=== PATIENT | male | born 1945 | race Caucasian/White ===

== ENCOUNTER 2016-08-08 05:46 | Inpatient (IN) | payer BC ==
[2016-08-05 16:48] LABS: ALKALINE PHOSPHATASE 127 U/L (45-117); CALCIUM, SERUM 8.3 MG/DL (8.5-10.4); CHLORIDE, SERUM 102 MMOL/L (96-112); CO2 (CARBON DIOXIDE) 29 MMOL/L (24-34); CREATININE 1.58 MG/DL (0.70-1.30); GFR AFRICAN AMERICAN 50 ML/MIN (>=60); GFR NON AFRICAN AMERICAN 43 ML/MIN (>=60); GLUCOSE, SERUM 92 MG/DL (60-99); IRON, SERUM 36 MCG/DL (35-150); POTASSIUM, SERUM 4.2 MMOL/L (3.5-5.3); SGOT(AST) 28 U/L (5-40); SGPT(ALT) 26 U/L (5-65); SODIUM, SERUM 140 MMOL/L (135-148); TOTAL BILIRUBIN 0.5 MG/DL (0-1.2); TOTAL PROTEIN 6.4 G/DL (6.0-8.5)
[2016-08-05 16:53] LABS: A/G RATIO 0.7 (0.7-1.9); ALBUMIN 2.7 G/DL (3.5-5.0); BUN (BLOOD UREA NITROGEN) 35 MG/DL (6-23); GLOBULIN 3.7 G/DL (2.5-4.1)
--- NOTE | ~2016-08-08 | DS ---
Discharge Summary [facility] [address] [place]. [address] NAME: DAVIDSON BA : 41 STATUS : ADM IN [facility]#: [id number] AGE: 71 ADM/REG DATE : 08/08/16 MR#: [id number] REPORT SERV DATE: 08/22/16 DICTATED BY: NITO OTT DATE: 08/22/16 REPORT STATUS : Draft TRANSCRIBED BY: MODL DATE: 08/22/16 ADMISSION DATE: 08/08/2016 DISCHARGE DATE: 08/22/2016 SUMMARY DATE OF : 08/22/2016 at 1642. REASON FOR ADMISSION: Acute hypoxic respiratory failure, jgyrb-ze-icakons congestive heart failure exacerbation. HISTORY OF PRESENT ILLNESS: Please refer to Dr. Allen Lamb's history and physical dated 08/08/2016 for complete details regarding the patient's admission. In brief, the patient was admitted to the Hospitalist Service for management and evaluation of his acute-on- chronic systolic heart failure exacerbation and vsspo-mz-kndexiy hypoxic respiratory failure and pneumonia. HOSPITAL COURSE: From admission on 08/17/2016, please refer to Mr. Pancho Barrios's interim summary. In brief, during that time, Mr. Barrios took care of the patient. He was diagnosed with a community-acquired pneumonia along with anevd-tk-hxyfrgi systolic heart failure exacerbation, acute hypoxic respiratory failure along with acute kidney injury that was being managed by the Hospitalist Service, Dr. Reyes and Dr. Chano Floyd. I assumed care of this patient back from Mr. Pancho Barrios on 08/18/2016. On Wednesday, the day prior to my assumption of care, he had been weaned down to 9 L. Please note that his baseline was around 2 L. He had been compensated from a heart failure perspective. When I rounded on the patient on the first day on Wednesday, he had a significant decline in his oxygenation and required 15 L of oxygen. He was switched back to Vapotherm on Wednesday. Dr. Kwan of Pulmonary Medicine continued to follow him. The chest x-ray on Wednesday showed diffuse pulmonary infiltrates. Given the fact that his BNP and his creatinine were up, it was felt that the patient was compensated from a heart failure standpoint and his diffuse infiltrates and worsening oxygenation was concerning for ARDS. Given the concern for ARDS, Dr. Kwan had discussed using Vapotherm during the daytime and BiPAP at night along with starting on aggressive steroids. He had already completed 8 days of IV vancomycin. I continued to have end of life discussions even starting on Wednesday. Given his poor oxygenation, I was very concerned about his condition significantly declining very fast. I had consulted Palliative Care on 08/19/2016. Dr. Kwan and I were unable to improve his oxygenation and he required Vapotherm. He had tolerated BiPAP at night for the past couple of nights. Dr. Rahman continued to work with the patient and his family towards hospice. The patient had eventually decided to be a do not resuscitate, do not intubate. Every day, I explained to the patient of his very poor prognosis. On Wednesday, he stated he was getting tired of breathing and he was ready to go, however, he was declining hospice and his family was also declining hospice at that time. Dr. Rahman's plan was to re-evaluate on Wednesday, however on Wednesday, he was in mid sentence and then started to stop breathing and he was pronounced at 1642. His family was at bedside. CAUSE OF : Discharge Summary [address] [address] NAME: DAVIDSON BA : 41 STATUS : ADM IN [facility]#: [id number] AGE: 71 ADM/REG DATE : 08/08/16 MR#: [id number] REPORT SERV DATE: 08/22/16 DICTATED BY: NITO OTT DATE: 08/22/16 REPORT STATUS : Draft TRANSCRIBED BY: MODGuanaco DATE: 08/22/16 1. Lgbgu-jm-folctcw hypoxic respiratory failure secondary to ARDS. 2. Community-acquired pneumonia treated with 8 days of IV antibiotics. 3. Bcrew-em-exixrlx systolic heart failure exacerbation with an EF of 20%. 4. Compensated acute kidney injury on CKD stage 3. 5. Coronary artery disease. 6. Status post treatment for influenza. 7. Constipation. 8. Obstructive sleep apnea. 9. COPD without exacerbation. PROCEDURES: 1. Consultation with Dr. Chano Floyd, Dr. Reyes, Dr. Kwan. 2. Chest x-ray, KUB, CT scan of the chest without contrast, 2D echocardiogram. This is Dr. Nito tOt spending over 30 minutes discussing with the family prognosis, discharge planning on Mr. Ba. GANT/DIDIER Nito Ott MD / [id number] CC: MD Raul Frey M.D. William Warren, M.D.
--- NOTE | ~2016-08-08 | IDS ---
Interim Discharge Summary [facility] [address] [place]. [address] NAME: DAVIDSON STOKES : 41 STATUS : ADM [facility]#: [id number] AGE: 71 ADM/REG DATE : 08/08/16 MR#: [id number] REPORT SERV DATE: 08/17/16 DICTATED BY: TORO LEBLANC DATE: 08/17/16 REPORT STATUS : Draft TRANSCRIBED BY: MODL DATE: 08/17/16 ADMISSION DATE: 08/08/2016 DISCHARGE DATE: REASON FOR ADMISSION: This is a 71-year-old male, who recently had influenza with a history of CHF with EF of 20% that presented to the emergency room with shortness of breath. He had apparently been diagnosed by his primary care Dr. Basurto with flu and been treated with Tamiflu. He seem to be getting better initially, but then had developed shortness of breath. Shortness of breath worsened to the point where he had to go back and after evaluating him they started him on home oxygen and he had been using at home 2 L and had to increased to 4 L and then 6 L and then finally decided to come into the emergency room. In the emergency room, initial workup revealed chest x-ray showing interstitial edema or infiltrates involving the entire right lung and part of the left lower lung as well. On admission, the patient's white blood cell count was 10.3, and his procalcitonin 0.16. DISCHARGE DIAGNOSES: 1. Right lung and left lower lung infiltrates likely multifactorial possibly bacterial pneumonia, status post recent influenza infection with possible cardiogenic influence as well given the patient's history of congestive heart failure. 2. Systolic congestive heart failure with ejection fraction of 20%. 3. Acute hypoxic respiratory failure. 4. Acute kidney injury, chronic kidney disease. 5. Coronary artery disease status post coronary artery bypass graft. 6. Status post recent influenza. 7. Abdominal pain secondary to constipation, resolving with BMs. HOSPITAL COURSE: 1. Bilateral lung infiltrates. The patient initially started on IV Rocephin and azithromycin, and started on IV diuretics. After initial diuresis, the patient's oxygen requirements went up further requiring him being converted to Vapotherm oxygen. At this time, it was decided to broaden his antibiotic coverage to Zosyn and vancomycin, and after the patient was requiring 30 L of Vapotherm oxygen decision was made to consult Pulmonology as the patient was attached to Dr. Sue Kwan. Dr. Floyd has been following the patient here at the hospital. He converted the patient to IV cefepime and vancomycin. The patient has completed eight days of treatment of broad- spectrum antibiotics today and antibiotics have been discontinued. The patient was also changed from oral prednisone to IV Solu-Medrol 40 mg b.i.d. and has since been converted to oral prednisone. The patient has been weaned from Vapotherm oxygen and is now on 8 L to 9 L nasal cannula. The patient does have home oxygen at home, but obviously have to be weaned further before he can go home to use his home oxygen. If the patient plateaus on oxygen requirements, rehab might need to be considered to help wean his oxygen further. 2. Systolic CHF with EF of 20%. Dr. Anupam Reyes has been following the patient here at the hospital and helping with his diuresis over the last week. The patient is net -3 L over a seven-day period. He is currently on oral Bumex 1 mg daily. 3. Acute kidney injury on chronic kidney disease. The patient has a medical history of Interim Discharge Summary [address] [address] NAME: DAVIDSON STOKES : 41 STATUS : ADM [facility]#: [id number] AGE: 71 ADM/REG DATE : 08/08/16 MR#: [id number] REPORT SERV DATE: 08/17/16 DICTATED BY: TORO LEBLANC DATE: 08/17/16 REPORT STATUS : Draft TRANSCRIBED BY: DIDIER DATE: 08/17/16 chronic kidney disease stage 3. His creatinine here at the hospital initially on admission 1.28 chelsey to 1.91 with diuresis and has trended down to 1.54 yesterday and then again chelsey to 1.80 today. I have held the patient's dose of Bumex today, can consider resuming it tomorrow perhaps at a lower dose. 4. Abdominal pain. The patient was complaining of epigastric and abdominal pain over the last three days. Started him on Protonix, Carafate, and some Reglan to assist with nausea and abdominal pain. Additionally, gave him laxatives to help bowel movement and ended up having to have enema in the middle of the night. After having a large BM, the patient has experience relief with his abdominal pain. Still was having a little bit of discomfort this morning. Status fully resolved after today, can likely discontinue the Reglan and Carafate. CURRENT MEDICATIONS: 1. Carafate 1 g p.o. a.c. at bedtime. 2. Colace 100 mg p.o. b.i.d. 3. Coreg 12.5 mg p.o. b.i.d. 4. Prednisone 40 mg p.o. daily. 5. Guaifenesin 600 mg p.o. b.i.d. 6. Aspirin 81 mg p.o. daily. 7. Heparin 5000 units subcu q.8h. 8. Lipitor 40 mg p.o. at bedtime. 9. Mag-Ox 400 mg p.o. daily. 10.MiraLAX one packet p.o. daily. 11.Simethicone 120 mg p.o. q.6h. 12.Plavix 75 mg p.o. daily. 13.Protonix 40 mg p.o. b.i.d. 14.Proventil 3 mL inhaled q.4h. 15.Pulmicort 1 mg p.o. b.i.d. inhaled. 16.Reglan 5 mg p.o. a.c. at bedtime. 17.Spiriva 18 mcg inhaled one capsule daily. 18.Synthroid 50 mcg p.o. daily. 19.Allopurinol 300 mg p.o. daily. CURRENT PLAN: The patient to continue trying to wean down on oxygen level to satisfactory level, so he can go home. We will hopefully can get him down to the 4 L to 6 L range again if the patient plateaus would consider rehab for further oxygen weaning. TDR/MODL Toro Leblanc APN / [id number] CC: Interim Discharge Summary [address] [address] NAME: DAVIDSON STOKES : 41 STATUS : ADM [facility]#: [id number] AGE: 71 ADM/REG DATE : 08/08/16 MR#: [id number] REPORT SERV DATE: 08/17/16 DICTATED BY: TORO LEBLANC DATE: 08/17/16 REPORT STATUS : Draft TRANSCRIBED BY: DIDIER DATE: 08/17/16 Christiano Aguirre M.D. Nathan Mull IV, M.D. William Warren, M.D.
--- NOTE | ~2016-08-08 | CN ---
Consultation Report [facility] [address] [place]. [address] NAME: DAVIDSON BA : 41 STATUS : ADM IN PAT#: [id number] AGE: 71 ADM/REG DATE : 08/08/16 MR#: [id number] REPORT SERV DATE: 08/12/16 DICTATED BY: ADAM FLOYD IV DATE: 08/12/16 REPORT STATUS : Draft TRANSCRIBED BY: MODGuanaco DATE: 08/12/16 PULMONARY CONSULTATION. DATE OF CONSULTATION: 08/12/2016 REASON FOR REQUEST: Hypoxemic respiratory failure on Vapotherm. HISTORY OF PRESENT ILLNESS: History was obtained from the patient and the records. Mr. Ba is a 71-year-old male with a history of coronary artery disease, ischemic cardiomyopathy with ejection fraction 20%, chronic kidney disease, hypertension, elevated cholesterol, severe obstructive sleep apnea, moderate COPD, peripheral arterial disease, hypothyroidism with recent influenza infection, who presents with increasing shortness of breath, hypoxemia with diffuse pulmonary infiltrates, right greater than left. The patient reportedly was in his normal state of compensated health until two weeks ago when he developed chills, sweats, and shortness of breath. He went to his primary care physician where reportedly an influenza screen was positive. He was given Tamiflu with some clinical improvement. After completing this, he returned for followup with increasing shortness of breath. At which time, he is found to be hypoxemic. He was initiated on supplemental oxygen at that time, though had persistent hypoxemia at home with increasing oxygen needs. He had a dry cough with chills, though no documented fevers and no purulent sputum production. He does have a barn with horses, however, has had no significant organic exposures including being in the hay loft or composting materials. He did complain of some increasing shortness of breath with sitting. He was compliant with his bronchodilator medications. Because of worsening symptoms and hypoxemia, he sought evaluation. He had increased pulmonary infiltrates, right greater than left, with increasing oxygen needs for now, which we are consulted. PULMONARY HISTORY: Remarkable for no history of childhood asthma. He carries a diagnosis of adult COPD, both based on emphysema on his CT scan as well as FEV1 of 53%. He has had pneumonia in the past. He is a more than 35-pack year smoker, having quit in 1994. He is up to date on both seasonal influenza vaccine and Pneumovax. PAST MEDICAL HISTORY: 1. Coronary artery disease. 2. Ischemic cardiomyopathy, ejection fraction of 20%. 3. Chronic kidney disease. 4. Hypertension. 5. Elevated cholesterol. 6. Severe obstructive sleep apnea, noncompliant with CPAP. 7. Moderate COPD. 8. Peripheral arterial disease. 9. Hypothyroidism. SURGERIES: Consultation Report [address] [place]. [address] NAME: DAVIDSON BA : 41 STATUS : ADM IN PAT#: [id number] AGE: 71 ADM/REG DATE : 08/08/16 MR#: [id number] REPORT SERV DATE: 08/12/16 DICTATED BY: ADAM FLOYD IV DATE: 08/12/16 REPORT STATUS : Draft TRANSCRIBED BY: DIDIER DATE: 08/12/16 1. Right carotid endarterectomy. 2. AICD placement. 3. Bilateral cataract surgery. 4. Coronary artery bypass grafting. 5. Right elbow surgery with pinning. ALLERGIES: LISTED FOR PENICILLIN AND SULFA, BOTH WHICH CAUSED RASH AND ITCHING. CURRENT MEDICATIONS: Coreg 12.5 mg twice a day, DuoNebs four times a day, Humibid 600 mg twice a day, aspirin 81 mg daily, heparin 5000 units q.8 hours, vancomycin per pharmacy, Lipitor 40 mg daily, Mag-Ox 400 mg daily, Plavix 75 mg daily, Pulmicort 1 mg twice a day, Solu-Medrol 40 mg IV twice a day, Synthroid 50 mcg daily, Zosyn 3.375 g q.8 hours, and Zyloprim 300 mg daily. SOCIAL HISTORY: Remarkable for the tobacco use as above. He denies alcohol or illicit drug use. He is , has one daughter. FAMILY HISTORY: Remarkable for father who had pancreatic carcinoma; mother who of congestive heart failure; and a sister who has seizure disorder. REVIEW OF SYSTEMS: 14 systems reviewed and pertinent positives noted above. PHYSICAL EXAMINATION: GENERAL: This is an elderly male, on Vapotherm, however, no respiratory distress at this time. He is alert, awake, and oriented. VITAL SIGNS: Temperature is 96.9, pulse is 76, saturations are 97% on 90% Vapotherm, blood pressure is 138/70. HEENT: Patient is normocephalic, atraumatic. Extraocular movements are intact. He has a nasal cannula in place. He has an upper and lower dentures with a Mallampati III airway and narrowing of the posterior pharyngeal space. No other oral lesions are noted. NECK: Without any palpable lymphadenopathy or thyromegaly. He has a right carotid endarterectomy scar. CHEST: He has right greater than left basilar inspiratory crackles. Breath sounds are symmetrically decreased. There is a prolonged expiratory phase. No current rhonchi or wheezes are noted. He has an AICD in his left anterior chest and a sternotomy scar. CARDIOVASCULAR: Jugular venous pulsations appear to be approximately 7 cm. He has 1+ carotid upstrokes. No obvious bruit. He has a distant S1, S2 with frequent premature beats. No clear S3 or murmur is noted. Peripheral pulses are diminished. ABDOMEN: Protuberant, soft. There are hypoactive bowel sounds. There is no palpable hepatosplenomegaly or masses. EXTREMITIES: Demonstrate no cyanosis, clubbing, edema, or palpable cords. NEUROLOGIC: The patient is able to move all extremities. Strength is 5/5 and sensation intact to light touch. Consultation Report [address] [place]. [address] NAME: DAVIDSON BA : 41 STATUS : ADM IN [facility]#: [id number] AGE: 71 ADM/REG DATE : 08/08/16 MR#: [id number] REPORT SERV DATE: 08/12/16 DICTATED BY: ADAM FLOYD IV DATE: 08/12/16 REPORT STATUS : Draft TRANSCRIBED BY: DIDIER DATE: 08/12/16 LABORATORY DATA: Chest CT and chest x-ray demonstrates right greater than left infiltrates with interlobular septal thickening. There is some central lobular and paraseptal emphysematous changes. No significant adenopathy is noted. CBC: Hemoglobin 11.1, hematocrit 33.8, platelet count was 267,000, white count of 10.3. Chemistries: Sodium is 141, potassium 4.5, chloride 101, bicarb 33, BUN 53, creatinine 1.49, glucose 128. BNP earlier in the course was 584. Blood gas; pH 7.47, pCO2 of 42, PO2 56. Respiratory culture grew normal kareem. Influenza screen was negative, and urine antigens for Legionella and pneumococcal, both negative. ASSESSMENT AND PLAN: 1. Respiratory. Infiltrate may be multifactorial to include both infectious and cardiogenic. We will increase the flow on the Vapotherm to 30 L/minute. We will titrate oxygen to maintain saturations in the 90% to 94% range. We will add Spiriva one capsule daily. DuoNebs were discontinued. Albuterol will be given via EzPAP q.4 hours while awake and q.4 hours as needed. We will continue the Acapella valve to assist with mucus clearance. Agree with steroids at 40 mg daily. The patient has severe obstructive sleep apnea, however, is concerned he has no disease because of distrust with previous physician. Outpatient evaluation scheduled with Dr. River. 2. Cardiovascular. Diamox will be given daily for his alkalemia. Will continue his other cardiac medications. Will restart Bumex 1 mg twice a day, and follow creatinine. We will check BNP intermittently. 3. Renal. Diamox to be given for the alkalemia. Watch the patient's creatinine with diuresis. 4. Infectious Disease. The patient has a reported allergy to penicillin, though has tolerated Zosyn to this point. We will change to cefepime, adjust it per pharmacy. Vancomycin will be continued. We will repeat procalcitonin level today, though this may be a viral process. 5. Endocrinologic. The patient appears to be over-replaced based on his low TSH and high free T4. I would consider discontinuation of the Synthroid. I will watch blood sugars on the steroids. Thank you for consulting us. We will follow up the patient with you. NM/MODL Adam Floyd IV, M.D. / [id number] CC: Christiano Aguirre M.D.
--- NOTE | ~2016-08-08 | CN ---
Consultation Report [facility] [address] [place]. [address] NAME: DAVIDSON BA : 41 STATUS : ADM IN [facility]#: [id number] AGE: 71 ADM/REG DATE : 08/08/16 MR#: [id number] REPORT SERV DATE: 08/09/16 DICTATED BY: ANUPAM GONZALEZ DATE: 08/09/16 REPORT STATUS : Draft TRANSCRIBED BY: MODL DATE: 08/09/16 CARDIOVASCULAR CONSULTATION DATE OF CONSULTATION: 08/09/2016 INDICATION: Congestive heart failure, pneumonia, bronchitis in the setting of dyspnea. HISTORY OF PRESENT ILLNESS: Mr. Ba is a 71-year-old man with a longstanding history of an ischemic cardiomyopathy. He has a history of coronary artery disease with bypass grafting in 2005. He has a known EF of 20%, status post ICD. He has chronic kidney disease, hypertension, and hypercholesterolemia. He underwent carotid endarterectomy in May of this year. He states since that time he has been worsening in terms of his dyspnea. This is become more acutely worse over the last several days to weeks. He has not had any syncope or presyncope. He is admitted to the emergency room with dyspnea, hypoxia, and an abnormal chest x-ray. PAST MEDICAL HISTORY: 1. Coronary artery disease, status post coronary artery bypass grafting 2005. 2. Ischemic cardiomyopathy, EF 20%. 3. Status post ICD. 4. Hypertension. 5. Hypercholesterolemia. 6. Chronic kidney disease stage 3. 7. Status post right carotid endarterectomy, May 2016. SOCIAL HISTORY: He does not smoke or drink alcohol. FAMILY HISTORY: There is no family history of early coronary artery disease. REVIEW OF SYSTEMS: A complete review of systems was obtained, which is negative in detail except as mentioned above in the HPI. ALLERGIES: PENICILLIN, SULFA, AND PHENERGAN. MEDICATIONS: Allopurinol, aspirin 81 mg daily, Bumex 1 mg once a day, Coreg 12.5 mg twice a day, Plavix 75 mg daily, fluticasone, levothyroxine 50 mcg daily, Crestor 20 mg daily, Entresto one b.i.d., magnesium. PHYSICAL EXAMINATION: VITAL SIGNS: Blood pressure 100/60, heart rate of 70, respiratory rate of 14. GENERAL: Comfortable in no acute distress. HEENT: Anicteric. No xanthelasma. Lips without cyanosis. NECK: No JVD. Carotids 2+ and symmetric. No carotid bruits. Consultation Report [address] [place]. [address] NAME: DAVIDSON BA : 41 STATUS : ADM IN PAT#: [id number] AGE: 71 ADM/REG DATE : 08/08/16 MR#: [id number] REPORT SERV DATE: 08/09/16 DICTATED BY: ANUPAM GONZALEZ DATE: 08/09/16 REPORT STATUS : Draft TRANSCRIBED BY: DIDIER DATE: 08/09/16 LUNGS: CTA bilaterally. No wheezes or rhonchi. No accessory muscle use. COR: RRR. Normally placed PMI. Normal S1 and S2. No murmurs, rubs or gallops. ABD: Soft, nontender, nondistended. Normal bowel sounds. No abdominal bruits. EXT: No clubbing, cyanosis or edema 2+ and symmetric distal pulses. SKIN: Warm. Dry. No venous stasis changes. MS: No kyphosis. NEURO/PSYCH: Oriented x3. No anxiety or depression. LABORATORY STUDIES: Potassium of 4.3, creatinine of 1.28. BNP of 750. Hematocrit of 35. Echocardiogram: I personally reviewed an echocardiogram, which showed stable severe left ventricular systolic dysfunction, EF 20%. EKG: A 12-lead EKG shows probable sinus rhythm with significant baseline lead, noise, artifact. Poor R-wave progression. Anteroseptal Q-waves. IMPRESSION: Mr. Ba is a 71-year-old man admitted with chronic systolic congestive heart failure in the setting of an ischemic cardiomyopathy, ejection fraction 20%. He may have a component of acute on chronic systolic congestive heart failure in addition to bronchitis and perhaps pneumonia. His Coreg and Entresto are being held secondary to low blood pressure. I have recommended restarting Bumex IV today and p.o. tomorrow. MANISH/DIDIER Anupam Gonzalez M.D. / [id number] CC: MD Raul Frey M.D.
--- NOTE | ~2016-08-08 | HP ---
History And Physical [place] [address] [facility] [place]. [address] NAME: DAVIDSON BA : 41 STATUS : ADM IN [facility]#: [id number] AGE: 71 ADM/REG DATE : 08/08/16 MR#: [id number] REPORT SERV DATE: 08/08/16 DICTATED BY: ALLEN BROWN DATE: 08/08/16 REPORT STATUS : Draft TRANSCRIBED BY: MODL DATE: 08/08/16 DATE OF ADMISSION: 08/08/2016 CHIEF COMPLAINT: Shortness of breath. HISTORY OF PRESENT ILLNESS: This is a 71-year-old male, who had a recent influenza, has severe congestive heart failure with an ejection fraction of 20%, history of COPD, chronic kidney disease, and sleep apnea, who presents to the emergency room at [facility] with the above-mentioned complaint. History is obtained from the patient, his family who is at bedside, and reviewing data available on the [employer] system. According to Mr. Ba and the family, he had been in his usual state of health until about two weeks ago when he had an attack of influenza. He was seen by his primary care physician, Dr. Raul Basurto, who did a swab and diagnosed it. He was treated with Tamiflu and a shot given at the office. He seemed to be getting better initially, but then started developing shortness of breath. His shortness of breath progressively worsened to the point he had to go back and they after checking him or evaluating him started him on home oxygen continuously at 2 L via nasal cannula. In the last few days the daughter had been checking him and he had gone from 2 L to 4 L, and then to even more yesterday. Even with 6 L he was not comfortable and they decided to come to the emergency room at [facility]. In the emergency room, initial workup revealed a chest x-ray showing interstitial edema or infiltrates involving the entire right lung and part of the left lower lung as well. He was hypoxic, had to be on oxygen here, and Hospitalist Service was asked to admit him for further evaluation and treatment. At the time of my evaluation, he denied any chest pain, palpitations, or orthopnea. He had a dry nonproductive cough. Denied any hemoptysis, night sweats, or weight loss. He has not had any recent falls or loss of consciousness. No history of fevers and chills. He denied any nausea, vomiting, diarrhea, or diaphoresis. No history of hematemesis, hematochezia, or hematuria. No other history of recent travel or exposures. PAST MEDICAL HISTORY: Significant for history of COPD, chronic kidney disease, history of hypertension, obstructive sleep apnea not on CPAP yet, history of TIA in the past, coronary artery disease status post CABG, history of hypothyroidism, and AICD placement as well. He has severe congestive heart failure systolic with an ejection fraction of 20%. SOCIAL HISTORY: He has about 30- to 40-pack history of smoking, but quit quite a long time ago. He denies alcohol use or recreational drug use. FAMILY HISTORY: Noncontributory. MEDICATIONS: His medications at home were reviewed by me in the chart today. REVIEW OF SYSTEMS: History And Physical [address] [address] NAME: DAVIDSON BA : 41 STATUS : ADM IN [facility]#: [id number] AGE: 71 ADM/REG DATE : 08/08/16 MR#: [id number] REPORT SERV DATE: 08/08/16 DICTATED BY: ALLEN BROWN DATE: 08/08/16 REPORT STATUS : Draft TRANSCRIBED BY: DIDIER DATE: 08/08/16 As in history of present illness. All other systems were reviewed in detail and are quite unremarkable. PHYSICAL EXAMINATION: GENERAL: This is a pleasant 71-year-old, not in any acute distress. HEENT: Head is atraumatic and normocephalic. He is alert, awake, oriented to time, place, and person. His pupils are equal, reacting to light and accommodating. External ocular muscles are intact. Membranes are moist and pink. Sclerae are nonicteric. NECK: Supple with no jugular venous distention, lymphadenopathy, or thyromegaly. LUNGS: Auscultation of his lungs revealed fair air entry bilaterally with a few expiratory wheezes bilaterally. There were no rales. HEART: Auscultation of his heart revealed normal rate and rhythm. ABDOMEN: Soft and nontender. Bowel sounds are present. EXTREMITIES: Trace pitting edema in the lower extremities, otherwise without any cyanosis or clubbing. NEUROLOGIC: Grossly intact. No focal sensory or motor deficits. Higher functions appeared intact. He was able to move all four extremities. VITAL SIGNS: His vital signs today showed a temperature of 98 degrees Fahrenheit, pulse 81, respirations 20 a minute, blood pressure was 127/66, and oxygen saturations were 92% on 6 L via nasal cannula. LABORATORY DATA: Reviewed on the [employer] system showed a pH of 7.48 on an arterial blood gas, pCO2 was 40, PaO2 of 54, and bicarb of 28.5, this was on 44% FiO2. His sodium was 138, potassium 4.3, chloride 96 and CO2 of 33, BUN was 32 with a creatinine of 1.28, and blood glucose was 103. His troponin was 0.02 today. BNP was not done today. Lactate was 0.9. [place] [address], hemoglobin was 11.8, hematocrit 35.5, and platelet count was 252,000. Prothrombin time was 15.9 with an INR of 1.3. Urinalysis was not performed. Films of the chest x-ray were reviewed by me on the PACs today and interpreted by me. Today's films were compared to prior films available on the PACS as well. Per my interpretation, there is normal bony architecture with history of sternotomy and a left- sided AICD pacemaker. There are alveolar infiltrates involving almost the entire right lung and part of the left lower lobe as well. This could be infectious or pneumonia as well. It could also be viral. A 12-lead EKG done in the emergency room was reviewed and interpreted by me. There is normal sinus rhythm with a rate of [address] elevations. IMPRESSION: 1. Shortness of breath. 2. Acute on chronic systolic congestive heart failure. History And Physical [address] [address] NAME: DAVIDSON BA : 41 STATUS : ADM IN [facility]#: [id number] AGE: 71 ADM/REG DATE : 08/08/16 MR#: [id number] REPORT SERV DATE: 08/08/16 DICTATED BY: ALLEN BROWN DATE: 08/08/16 REPORT STATUS : Draft TRANSCRIBED BY: MODL DATE: 08/08/16 3. Acute on chronic hypoxic respiratory failure. 4. Recent influenza. 5. Chronic obstructive pulmonary disease. 6. Chronic kidney disease. 7. Hypertension. 8. Obstructive sleep apnea. 9. Coronary artery disease status post coronary artery bypass graft. 10.Hypothyroidism. PLAN: We will admit Mr. Ba to the Hospitalist Service with telemetry for close monitoring. We will start him on IV diuretics at this time. Follow output and daily weights, and get an echocardiogram. We will also check his BNP, TSH and consult Cardiology Service to see him. Meanwhile, we will go ahead and maximize bronchodilator treatments, continue supplemental oxygen therapy, and start him on steroids as well. We will check his lactate, procalcitonin, and influenza A and B today as well. After cultures are obtained, we will empirically cover him with antibiotics for community-acquired pneumonia. He will be monitored closely, maybe even repeat blood gases later on. He may need positive pressure support in the form of a BiPAP. We will continue all other medications at this time and treatments as well. He will be placed on an unfractionated heparin for DVT prophylaxis. Further recommendations will follow after we have seen the results of the tests we have ordered as above. Hospitalist Service will be following him during his stay here. /DIDIER Allen Brown M.D. / [id number] CC: Raul Basurto M.D.
[2016-08-08 05:11] LABS: BE (BASE EXCESS) 4.6 MEQ/L (0 +/- 2.5); INSTRUMENT SERIAL # 8087; PCO2 (CO2 TENSION) 40 MMHG (35-45); PO2 (O2 TENSION) 54 MMHG (79-93); pH 7.48 (7.37-7.43)
[2016-08-08 05:12] LABS: ALLENS TEST Pos; CARBOXYHEMOGLOBIN 1.3 % (0-3); DEVICE Nasal Cannula @ 6; HCO3 (ACTUAL BICARBONATE) 28.5 MEQ/L (23-27); HEMOBLOGIN CONTENT 11.5 G/DL (14-18); METHEMOGLOBIN 0.3 % (0-3); O2 CONTENT 14.4 VOL% (18-24); OPERATOR ID 17589; SAMPLE Arterial
[2016-08-08 05:13] LABS: BASOPHILS 0.2 %; BASOPHILS ABSOLUTE 0.02 10/3/uL (0.0-0.16); EOSINOPHILS 2.1 %; EOSINOPHILS ABSOLUTE 0.22 10/3/uL (0.0-0.53); HEMATOCRIT 35.5 % (40.0-51.0); HEMOGLOBIN 11.8 g/dL (13.6-17.8); IMMATURE GRANULOCYTES 0.4 %; IMMATURE GRANULOCYTES ABSOLUTE 0.04 10/3/uL (0.0-0.11); LYMPHOCYTES 10.6 %; LYMPHOCYTES ABSOLUTE 1.09 10/3/uL (0.67-4.30); MANUAL DIFF NO %; MEAN CORPUS HGB CONC 33.2 g/dL (32.0-36.0); MEAN CORPUSCULAR HEMOGLOB 29.9 pg (26.0-34.0); MEAN CORPUSCULAR VOLUME 90.1 fL (80-100); MEAN PLATELET VOLUME 9.5 fL (9.2-13.0); MONOCYTES 7.5 %; MONOCYTES ABSOLUTE 0.77 10/3/uL (0.21-1.20); NEUTROPHILS 79.2 %; NEUTROPHILS ABSOLUTE 8.16 10/3/uL (2.02-8.40); PLATELET COUNT 252 10/3/uL (150-400); RBC DISTRIBUTION WIDTH 14.8 % (12.0-16.0); RED CELL COUNT 3.94 10/6/uL (4.7-6.1); WHITE BLOOD CELLS 10.3 10/3/uL (4.5-10.5)
[2016-08-08 05:24] LABS: INTERNATIONAL NORMAL RATI 1.3 UNITS (-); PARTIAL THROMBO TIME 30.1 SEC (22.5-37.2); PROTIME (NOT ORD) 15.9 SEC (12.0-14.5)
[2016-08-08 05:27] LABS: BUN (BLOOD UREA NITROGEN) 32 MG/DL (6-23); CALCIUM, SERUM 8.5 MG/DL (8.5-10.4); CHEST PAIN PROFILE TAT 0 Hrs 20 Mins; CHLORIDE, SERUM 96 MMOL/L (96-112); CO2 (CARBON DIOXIDE) 33 MMOL/L (24-34); CREATININE 1.28 MG/DL (0.70-1.30); GFR AFRICAN AMERICAN 64 ML/MIN (>=60); GFR NON AFRICAN AMERICAN 55 ML/MIN (>=60); GLUCOSE, SERUM 103 MG/DL (60-99); POTASSIUM, SERUM 4.3 MMOL/L (3.5-5.3); SODIUM, SERUM 138 MMOL/L (135-148); TROPONIN I <0.02 NG/ML (<0.05)
[~2016-08-08 05:46] MED LIST: AMOXIL875 MG PO; BREO ELLIPTA 21 EACH INH; CIP5 PO; CORDARONE PO; COREG12 PO; COREG3 PO; COREG6 PO; CRESTOR20 MG PO; FLAG500TAB PO; HALF81 PO; INHALER; KDUR20 PO; KLOR-CON M2020 MEQ PO; L20 PO; L40 PO; LEVOTHYROXIN50 MCG PO; LOP25 PO; LOTE5 PO; MAGNESIUM 500MG PO; MAGNESIUM PO; MONODOX100 MG PO; OTC ANTACID PO; PLAVIX PO; PROAIR HFA INH; SACU1TAB PO; SPIRO25 PO; ULTRAM50 PO; Z300 PO
[2016-08-08 06:47] LABS: PROCALCITONIN 0.16 ng/mL (<0.5)
[2016-08-08 11:32] LABS: INFLUENZA A SCREEN NEGATIVE (NEGATIVE); INFLUENZA B SCREEN NEGATIVE (NEGATIVE)
[2016-08-08] MEDS ORDERED: BUM1 PO (12:41)
[2016-08-08 13:35] LABS: TROPONIN I 0.02 NG/ML (<0.05)
[2016-08-08 14:17] LABS: PROCALCITONIN 0.2 ng/mL (<0.5)
[2016-08-08 22:12] LABS: TROPONIN I 0.02 NG/ML (<0.05)
[2016-08-08 22:42] LABS: PROCALCITONIN 0.18 ng/mL (<0.5)
[2016-08-09 07:52] LABS: BASOPHILS 0 %; EOSINOPHILS 0 %; HEMATOCRIT 32.4 % (40.0-51.0); HEMOGLOBIN 10.6 g/dL (13.6-17.8); IMMATURE GRANULOCYTES 0.1 %; IMMATURE GRANULOCYTES ABSOLUTE 0.01 10/3/uL (0.0-0.11); LYMPHOCYTES 5.9 %; LYMPHOCYTES ABSOLUTE 0.66 10/3/uL (0.67-4.30); MEAN CORPUS HGB CONC 32.7 g/dL (32.0-36.0); MEAN CORPUSCULAR HEMOGLOB 29.1 pg (26.0-34.0); MEAN PLATELET VOLUME 9.7 fL (9.2-13.0); MONOCYTES 3.3 %; MONOCYTES ABSOLUTE 0.37 10/3/uL (0.21-1.20); NEUTROPHILS 90.7 %; NEUTROPHILS ABSOLUTE 10.22 10/3/uL (2.02-8.40); PLATELET COUNT 236 10/3/uL (150-400); RED CELL COUNT 3.64 10/6/uL (4.7-6.1); WHITE BLOOD CELLS 11.3 10/3/uL (4.5-10.5)
[2016-08-09 08:00] LABS: MANUAL DIFF NO %
[2016-08-09 08:39] LABS: CALCIUM, SERUM 8.8 MG/DL (8.5-10.4); CHLORIDE, SERUM 99 MMOL/L (96-112); CO2 (CARBON DIOXIDE) 32 MMOL/L (24-34); GFR AFRICAN AMERICAN 69 ML/MIN (>=60); GFR NON AFRICAN AMERICAN 60 ML/MIN (>=60); PHOSPHORUS, SERUM 3.8 MG/DL (2.5-4.5); POTASSIUM, SERUM 4.8 MMOL/L (3.5-5.3); SODIUM, SERUM 141 MMOL/L (135-148); TROPONIN I 0.02 NG/ML (<0.05)
[2016-08-09 08:40] LABS: BUN (BLOOD UREA NITROGEN) 38 MG/DL (6-23); GLUCOSE, SERUM 137 MG/DL (60-99)
[2016-08-09 09:02] LABS: PROCALCITONIN 0.18 ng/mL (<0.5)
[2016-08-10 07:30] LABS: BASOPHILS 0.1 %; EOSINOPHILS 0 %; HEMATOCRIT 34.5 % (40.0-51.0); HEMOGLOBIN 11.2 g/dL (13.6-17.8); IMMATURE GRANULOCYTES 0.2 %; LYMPHOCYTES 5.6 %; MEAN CORPUS HGB CONC 32.5 g/dL (32.0-36.0); MEAN CORPUSCULAR HEMOGLOB 29.2 pg (26.0-34.0); MEAN CORPUSCULAR VOLUME 90.1 fL (80-100); MEAN PLATELET VOLUME 9.6 fL (9.2-13.0); MONOCYTES 4.5 %; NEUTROPHILS 89.6 %; PLATELET COUNT 278 10/3/uL (150-400); RBC DISTRIBUTION WIDTH 15.1 % (12.0-16.0); RED CELL COUNT 3.83 10/6/uL (4.7-6.1); WHITE BLOOD CELLS 15.1 10/3/uL (4.5-10.5)
[2016-08-10 07:31] LABS: BASOPHILS ABSOLUTE 0.01 10/3/uL (0.0-0.16); IMMATURE GRANULOCYTES ABSOLUTE 0.03 10/3/uL (0.0-0.11); LYMPHOCYTES ABSOLUTE 0.84 10/3/uL (0.67-4.30); MONOCYTES ABSOLUTE 0.68 10/3/uL (0.21-1.20); NEUTROPHILS ABSOLUTE 13.53 10/3/uL (2.02-8.40)
[2016-08-10 07:34] LABS: MANUAL DIFF NO %
[2016-08-10 07:36] LABS: CALCIUM, SERUM 8.7 MG/DL (8.5-10.4); CHLORIDE, SERUM 102 MMOL/L (96-112); CO2 (CARBON DIOXIDE) 31 MMOL/L (24-34); CREATININE 1.35 MG/DL (0.70-1.30); GFR AFRICAN AMERICAN 60 ML/MIN (>=60); GFR NON AFRICAN AMERICAN 52 ML/MIN (>=60); GLUCOSE, SERUM 115 MG/DL (60-99); POTASSIUM, SERUM 4.1 MMOL/L (3.5-5.3); SODIUM, SERUM 142 MMOL/L (135-148)
[2016-08-10 07:37] LABS: BUN (BLOOD UREA NITROGEN) 45 MG/DL (6-23)
[2016-08-10 15:55] LABS: BUN (BLOOD UREA NITROGEN) 46 MG/DL (6-23); CALCIUM, SERUM 8.3 MG/DL (8.5-10.4); CHLORIDE, SERUM 100 MMOL/L (96-112); CO2 (CARBON DIOXIDE) 33 MMOL/L (24-34); CREATININE 1.51 MG/DL (0.70-1.30); GFR AFRICAN AMERICAN 52 ML/MIN (>=60); GFR NON AFRICAN AMERICAN 45 ML/MIN (>=60); GLUCOSE, SERUM 111 MG/DL (60-99); POTASSIUM, SERUM 4.4 MMOL/L (3.5-5.3); SODIUM, SERUM 142 MMOL/L (135-148)
[2016-08-11 04:23] LABS: BE (BASE EXCESS) 6.2 MEQ/L (0 +/- 2.5); CARBOXYHEMOGLOBIN 0.2 % (0-3); HCO3 (ACTUAL BICARBONATE) 30.4 MEQ/L (23-27); HEMOBLOGIN CONTENT 11.3 G/DL (14-18); INSTRUMENT SERIAL # 8083; METHEMOGLOBIN 0.2 % (0-3); O2 CONTENT 14.1 VOL% (18-24); PCO2 (CO2 TENSION) 42 MMHG (35-45); PO2 (O2 TENSION) 56 MMHG (79-93); SAMPLE Arterial; pH 7.47 (7.37-7.43)
[2016-08-11 04:24] LABS: ALLENS TEST Pos; OPERATOR ID 18978
[2016-08-11 06:13] LABS: BASOPHILS 0.1 %; BASOPHILS ABSOLUTE 0.01 10/3/uL (0.0-0.16); EOSINOPHILS 0 %; HEMATOCRIT 34.2 % (40.0-51.0); HEMOGLOBIN 11.1 g/dL (13.6-17.8); IMMATURE GRANULOCYTES 0.4 %; IMMATURE GRANULOCYTES ABSOLUTE 0.04 10/3/uL (0.0-0.11); LYMPHOCYTES 9.1 %; LYMPHOCYTES ABSOLUTE 0.99 10/3/uL (0.67-4.30); MANUAL DIFF NO %; MEAN CORPUS HGB CONC 32.5 g/dL (32.0-36.0); MEAN CORPUSCULAR HEMOGLOB 29.5 pg (26.0-34.0); MEAN PLATELET VOLUME 9.4 fL (9.2-13.0); MONOCYTES 5.2 %; MONOCYTES ABSOLUTE 0.57 10/3/uL (0.21-1.20); NEUTROPHILS 85.2 %; PLATELET COUNT 257 10/3/uL (150-400); RED CELL COUNT 3.76 10/6/uL (4.7-6.1); WHITE BLOOD CELLS 10.9 10/3/uL (4.5-10.5)
[2016-08-11 06:23] LABS: BUN (BLOOD UREA NITROGEN) 48 MG/DL (6-23); CALCIUM, SERUM 8.8 MG/DL (8.5-10.4); CHLORIDE, SERUM 99 MMOL/L (96-112); CO2 (CARBON DIOXIDE) 34 MMOL/L (24-34); CREATININE 1.61 MG/DL (0.70-1.30); GFR AFRICAN AMERICAN 48 ML/MIN (>=60); GFR NON AFRICAN AMERICAN 42 ML/MIN (>=60); GLUCOSE, SERUM 113 MG/DL (60-99); POTASSIUM, SERUM 4.3 MMOL/L (3.5-5.3); SODIUM, SERUM 143 MMOL/L (135-148)
[2016-08-12 06:38] LABS: BASOPHILS 0.1 %; BASOPHILS ABSOLUTE 0.01 10/3/uL (0.0-0.16); EOSINOPHILS 0 %; HEMATOCRIT 33.8 % (40.0-51.0); HEMOGLOBIN 11.1 g/dL (13.6-17.8); IMMATURE GRANULOCYTES 0.7 %; IMMATURE GRANULOCYTES ABSOLUTE 0.07 10/3/uL (0.0-0.11); LYMPHOCYTES 7.3 %; LYMPHOCYTES ABSOLUTE 0.75 10/3/uL (0.67-4.30); MANUAL DIFF NO %; MEAN CORPUS HGB CONC 32.8 g/dL (32.0-36.0); MEAN CORPUSCULAR HEMOGLOB 29.8 pg (26.0-34.0); MEAN CORPUSCULAR VOLUME 90.6 fL (80-100); MEAN PLATELET VOLUME 9.4 fL (9.2-13.0); MONOCYTES 1.7 %; MONOCYTES ABSOLUTE 0.17 10/3/uL (0.21-1.20); NEUTROPHILS 90.2 %; PLATELET COUNT 267 10/3/uL (150-400); RBC DISTRIBUTION WIDTH 15.1 % (12.0-16.0); RED CELL COUNT 3.73 10/6/uL (4.7-6.1); WHITE BLOOD CELLS 10.3 10/3/uL (4.5-10.5)
[2016-08-12 06:49] LABS: BUN (BLOOD UREA NITROGEN) 53 MG/DL (6-23); CALCIUM, SERUM 8.6 MG/DL (8.5-10.4); CHLORIDE, SERUM 101 MMOL/L (96-112); CO2 (CARBON DIOXIDE) 33 MMOL/L (24-34); CREATININE 1.49 MG/DL (0.70-1.30); GFR AFRICAN AMERICAN 53 ML/MIN (>=60); GFR NON AFRICAN AMERICAN 46 ML/MIN (>=60); GLUCOSE, SERUM 128 MG/DL (60-99); POTASSIUM, SERUM 4.5 MMOL/L (3.5-5.3); SODIUM, SERUM 141 MMOL/L (135-148)
[2016-08-13 06:09] LABS: BASOPHILS 0.1 %; BASOPHILS ABSOLUTE 0.01 10/3/uL (0.0-0.16); EOSINOPHILS 0 %; HEMOGLOBIN 10.9 g/dL (13.6-17.8); IMMATURE GRANULOCYTES 0.9 %; IMMATURE GRANULOCYTES ABSOLUTE 0.11 10/3/uL (0.0-0.11); LYMPHOCYTES 6.4 %; LYMPHOCYTES ABSOLUTE 0.77 10/3/uL (0.67-4.30); MEAN CORPUS HGB CONC 32.1 g/dL (32.0-36.0); MEAN CORPUSCULAR HEMOGLOB 28.8 pg (26.0-34.0); MEAN CORPUSCULAR VOLUME 89.7 fL (80-100); MEAN PLATELET VOLUME 9.7 fL (9.2-13.0); MONOCYTES 2.4 %; MONOCYTES ABSOLUTE 0.29 10/3/uL (0.21-1.20); NEUTROPHILS 90.2 %; NEUTROPHILS ABSOLUTE 10.93 10/3/uL (2.02-8.40); PLATELET COUNT 261 10/3/uL (150-400); RBC DISTRIBUTION WIDTH 15.1 % (12.0-16.0); RED CELL COUNT 3.79 10/6/uL (4.7-6.1); WHITE BLOOD CELLS 12.1 10/3/uL (4.5-10.5)
[2016-08-13 06:19] LABS: CALCIUM, SERUM 8.8 MG/DL (8.5-10.4); CHLORIDE, SERUM 100 MMOL/L (96-112); CO2 (CARBON DIOXIDE) 31 MMOL/L (24-34); CREATININE 1.57 MG/DL (0.70-1.30); GFR AFRICAN AMERICAN 50 ML/MIN (>=60); GFR NON AFRICAN AMERICAN 43 ML/MIN (>=60); GLUCOSE, SERUM 147 MG/DL (60-99); POTASSIUM, SERUM 4.2 MMOL/L (3.5-5.3); SODIUM, SERUM 140 MMOL/L (135-148)
[2016-08-13 06:20] LABS: MANUAL DIFF NO %
[2016-08-13 06:21] LABS: BUN (BLOOD UREA NITROGEN) 62 MG/DL (6-23); PHOSPHORUS, SERUM 4.9 MG/DL (2.5-4.5)
[2016-08-14 06:08] LABS: HEMATOCRIT 35.1 % (40.0-51.0); HEMOGLOBIN 11.2 g/dL (13.6-17.8); MEAN CORPUS HGB CONC 31.9 g/dL (32.0-36.0); MEAN CORPUSCULAR HEMOGLOB 28.8 pg (26.0-34.0); MEAN CORPUSCULAR VOLUME 90.2 fL (80-100); MEAN PLATELET VOLUME 9.8 fL (9.2-13.0); PLATELET COUNT 272 10/3/uL (150-400); RBC DISTRIBUTION WIDTH 15.2 % (12.0-16.0); RED CELL COUNT 3.89 10/6/uL (4.7-6.1); WHITE BLOOD CELLS 11.8 10/3/uL (4.5-10.5)
[2016-08-14 06:16] LABS: MANUAL DIFF YES %
[2016-08-14 06:19] LABS: CALCIUM, SERUM 8.7 MG/DL (8.5-10.4); CHLORIDE, SERUM 98 MMOL/L (96-112); CO2 (CARBON DIOXIDE) 30 MMOL/L (24-34); CREATININE 1.91 MG/DL (0.70-1.30); GFR AFRICAN AMERICAN 39 ML/MIN (>=60); GFR NON AFRICAN AMERICAN 34 ML/MIN (>=60); GLUCOSE, SERUM 145 MG/DL (60-99); POTASSIUM, SERUM 4.1 MMOL/L (3.5-5.3); SODIUM, SERUM 140 MMOL/L (135-148); VANCOMYCIN TROUGH 15.7 MCG/ML (10.0-20.0)
[2016-08-14 06:21] LABS: BUN (BLOOD UREA NITROGEN) 72 MG/DL (6-23)
[2016-08-14 07:22] LABS: LYMPHOCYTES 4 %; LYMPHOCYTES ABSOLUTE (CALC) 0.47 10/3/uL (0.67-4.30); MONOCYTES 1 %; MONOCYTES ABSOLUTE (CALC) 0.12 10/3/uL (0.21-1.20); NEUTROPHILS ABSOLUTE (CALC) 11.21 10/3/uL (2.02-8.40); PLATELET ESTIMATE ADQ (ADEQUATE); SEGMENTED NEUTROPHIL (0) 95 %; TOTAL NUCLEATED CELLS 100
[2016-08-14 07:23] LABS: HYPERSEGMENTED NEUT FEW (6-10%) % (0-5)
[2016-08-14 07:24] LABS: OVALOCYTES 1+ (3-10/OIF) (0-2/OIF)
[2016-08-15 03:50] LABS: BASOPHILS 0.1 %; BASOPHILS ABSOLUTE 0.01 10/3/uL (0.0-0.16); EOSINOPHILS 0 %; HEMATOCRIT 36.5 % (40.0-51.0); HEMOGLOBIN 12.2 g/dL (13.6-17.8); IMMATURE GRANULOCYTES ABSOLUTE 0.14 10/3/uL (0.0-0.11); LYMPHOCYTES 4.3 %; LYMPHOCYTES ABSOLUTE 0.62 10/3/uL (0.67-4.30); MEAN CORPUS HGB CONC 33.4 g/dL (32.0-36.0); MEAN CORPUSCULAR HEMOGLOB 29.8 pg (26.0-34.0); MEAN PLATELET VOLUME 9.9 fL (9.2-13.0); MONOCYTES 3.6 %; MONOCYTES ABSOLUTE 0.52 10/3/uL (0.21-1.20); NEUTROPHILS ABSOLUTE 13.07 10/3/uL (2.02-8.40); PLATELET COUNT 277 10/3/uL (150-400); RBC DISTRIBUTION WIDTH 15.1 % (12.0-16.0); WHITE BLOOD CELLS 14.4 10/3/uL (4.5-10.5)
[2016-08-15 03:51] LABS: MANUAL DIFF NO %
[2016-08-15 04:10] LABS: BUN (BLOOD UREA NITROGEN) 73 MG/DL (6-23); CALCIUM, SERUM 8.8 MG/DL (8.5-10.4); CHLORIDE, SERUM 98 MMOL/L (96-112); CO2 (CARBON DIOXIDE) 29 MMOL/L (24-34); CREATININE 1.87 MG/DL (0.70-1.30); GFR AFRICAN AMERICAN 40 ML/MIN (>=60); GFR NON AFRICAN AMERICAN 35 ML/MIN (>=60); GLUCOSE, SERUM 152 MG/DL (60-99); POTASSIUM, SERUM 4.6 MMOL/L (3.5-5.3); SODIUM, SERUM 139 MMOL/L (135-148)
[2016-08-16 05:40] LABS: BUN (BLOOD UREA NITROGEN) 65 MG/DL (6-23); CALCIUM, SERUM 9.1 MG/DL (8.5-10.4); CHLORIDE, SERUM 100 MMOL/L (96-112); CO2 (CARBON DIOXIDE) 31 MMOL/L (24-34); CREATININE 1.54 MG/DL (0.70-1.30); GFR AFRICAN AMERICAN 51 ML/MIN (>=60); GFR NON AFRICAN AMERICAN 44 ML/MIN (>=60); POTASSIUM, SERUM 4.9 MMOL/L (3.5-5.3); SODIUM, SERUM 141 MMOL/L (135-148)
[2016-08-16 05:41] LABS: GLUCOSE, SERUM 116 MG/DL (60-99)
[2016-08-17 08:14] LABS: BASOPHILS 0.1 %; BASOPHILS ABSOLUTE 0.01 10/3/uL (0.0-0.16); EOSINOPHILS 0.1 %; EOSINOPHILS ABSOLUTE 0.01 10/3/uL (0.0-0.53); HEMOGLOBIN 13.6 g/dL (13.6-17.8); IMMATURE GRANULOCYTES ABSOLUTE 0.17 10/3/uL (0.0-0.11); LYMPHOCYTES 4.8 %; LYMPHOCYTES ABSOLUTE 0.79 10/3/uL (0.67-4.30); MEAN CORPUS HGB CONC 33.1 g/dL (32.0-36.0); MEAN CORPUSCULAR HEMOGLOB 29.8 pg (26.0-34.0); MEAN CORPUSCULAR VOLUME 89.9 fL (80-100); MEAN PLATELET VOLUME 9.9 fL (9.2-13.0); MONOCYTES ABSOLUTE 0.83 10/3/uL (0.21-1.20); NEUTROPHILS ABSOLUTE 14.75 10/3/uL (2.02-8.40); PLATELET COUNT 274 10/3/uL (150-400); RBC DISTRIBUTION WIDTH 15.5 % (12.0-16.0); RED CELL COUNT 4.57 10/6/uL (4.7-6.1); WHITE BLOOD CELLS 16.6 10/3/uL (4.5-10.5)
[2016-08-17 08:15] LABS: HEMATOCRIT 41.1 % (40.0-51.0)
[2016-08-17 08:16] LABS: MANUAL DIFF NO %
[2016-08-17 08:31] LABS: BUN (BLOOD UREA NITROGEN) 64 MG/DL (6-23); CALCIUM, SERUM 9.1 MG/DL (8.5-10.4); CHLORIDE, SERUM 99 MMOL/L (96-112); CO2 (CARBON DIOXIDE) 30 MMOL/L (24-34); GFR AFRICAN AMERICAN 42 ML/MIN (>=60); GFR NON AFRICAN AMERICAN 37 ML/MIN (>=60); POTASSIUM, SERUM 4.6 MMOL/L (3.5-5.3); SODIUM, SERUM 138 MMOL/L (135-148)
[2016-08-17 08:33] LABS: GLUCOSE, SERUM 92 MG/DL (60-99)
[2016-08-18 05:53] LABS: CALCIUM, SERUM 8.7 MG/DL (8.5-10.4); CHLORIDE, SERUM 99 MMOL/L (96-112); CO2 (CARBON DIOXIDE) 28 MMOL/L (24-34); CREATININE 2.09 MG/DL (0.70-1.30); GFR AFRICAN AMERICAN 35 ML/MIN (>=60); GFR NON AFRICAN AMERICAN 30 ML/MIN (>=60); SODIUM, SERUM 135 MMOL/L (135-148)
[2016-08-18 05:54] LABS: BUN (BLOOD UREA NITROGEN) 71 MG/DL (6-23); GLUCOSE, SERUM 149 MG/DL (60-99); POTASSIUM, SERUM 5.2 MMOL/L (3.5-5.3)
[2016-08-19 05:59] LABS: BUN (BLOOD UREA NITROGEN) 72 MG/DL (6-23); CALCIUM, SERUM 8.9 MG/DL (8.5-10.4); CHLORIDE, SERUM 102 MMOL/L (96-112); CO2 (CARBON DIOXIDE) 30 MMOL/L (24-34); CREATININE 2.02 MG/DL (0.70-1.30); GFR AFRICAN AMERICAN 37 ML/MIN (>=60); GFR NON AFRICAN AMERICAN 32 ML/MIN (>=60); POTASSIUM, SERUM 4.9 MMOL/L (3.5-5.3); SODIUM, SERUM 138 MMOL/L (135-148)
[2016-08-19 06:02] LABS: GLUCOSE, SERUM 113 MG/DL (60-99)
[2016-08-19 06:29] LABS: PROCALCITONIN 0.48 ng/mL (<0.5)
[2016-08-20 17:49] LABS: BASOPHILS 0.1 %; BASOPHILS ABSOLUTE 0.01 10/3/uL (0.0-0.16); EOSINOPHILS 0 %; HEMOGLOBIN 11.9 g/dL (13.6-17.8); IMMATURE GRANULOCYTES 0.3 %; IMMATURE GRANULOCYTES ABSOLUTE 0.06 10/3/uL (0.0-0.11); LYMPHOCYTES 3.6 %; MEAN CORPUS HGB CONC 32.9 g/dL (32.0-36.0); MEAN CORPUSCULAR HEMOGLOB 29.6 pg (26.0-34.0); MEAN PLATELET VOLUME 10.6 fL (9.2-13.0); MONOCYTES 2.3 %; MONOCYTES ABSOLUTE 0.45 10/3/uL (0.21-1.20); NEUTROPHILS 93.7 %; NEUTROPHILS ABSOLUTE 18.26 10/3/uL (2.02-8.40); PLATELET COUNT 216 10/3/uL (150-400); RBC DISTRIBUTION WIDTH 15.8 % (12.0-16.0); RED CELL COUNT 4.02 10/6/uL (4.7-6.1); WHITE BLOOD CELLS 19.5 10/3/uL (4.5-10.5)
[2016-08-20 17:51] LABS: HEMATOCRIT 36.2 % (40.0-51.0); MANUAL DIFF NO %
[2016-08-20 18:07] LABS: BUN (BLOOD UREA NITROGEN) 69 MG/DL (6-23); CALCIUM, SERUM 8.8 MG/DL (8.5-10.4); CHLORIDE, SERUM 100 MMOL/L (96-112); CO2 (CARBON DIOXIDE) 29 MMOL/L (24-34); CREATININE 1.83 MG/DL (0.70-1.30); GFR AFRICAN AMERICAN 41 ML/MIN (>=60); GFR NON AFRICAN AMERICAN 36 ML/MIN (>=60); GLUCOSE, SERUM 126 MG/DL (60-99); PHOSPHORUS, SERUM 2.4 MG/DL (2.5-4.5); POTASSIUM, SERUM 4.2 MMOL/L (3.5-5.3); SODIUM, SERUM 138 MMOL/L (135-148)
[2016-08-21 07:07] LABS: BASOPHILS 0.1 %; BASOPHILS ABSOLUTE 0.02 10/3/uL (0.0-0.16); EOSINOPHILS 0.1 %; EOSINOPHILS ABSOLUTE 0.01 10/3/uL (0.0-0.53); HEMATOCRIT 33.8 % (40.0-51.0); HEMOGLOBIN 11.2 g/dL (13.6-17.8); IMMATURE GRANULOCYTES 0.4 %; IMMATURE GRANULOCYTES ABSOLUTE 0.07 10/3/uL (0.0-0.11); LYMPHOCYTES 2.2 %; MEAN CORPUS HGB CONC 33.1 g/dL (32.0-36.0); MEAN CORPUSCULAR HEMOGLOB 29.3 pg (26.0-34.0); MEAN CORPUSCULAR VOLUME 88.5 fL (80-100); MEAN PLATELET VOLUME 10.6 fL (9.2-13.0); MONOCYTES 2.6 %; MONOCYTES ABSOLUTE 0.46 10/3/uL (0.21-1.20); NEUTROPHILS 94.6 %; NEUTROPHILS ABSOLUTE 16.94 10/3/uL (2.02-8.40); PLATELET COUNT 209 10/3/uL (150-400); RBC DISTRIBUTION WIDTH 15.8 % (12.0-16.0); RED CELL COUNT 3.82 10/6/uL (4.7-6.1); WHITE BLOOD CELLS 17.9 10/3/uL (4.5-10.5)
[2016-08-21 07:13] LABS: MANUAL DIFF NO %
[2016-08-21 07:16] LABS: BUN (BLOOD UREA NITROGEN) 68 MG/DL (6-23); CALCIUM, SERUM 8.6 MG/DL (8.5-10.4); CHLORIDE, SERUM 100 MMOL/L (96-112); CO2 (CARBON DIOXIDE) 31 MMOL/L (24-34); CREATININE 1.76 MG/DL (0.70-1.30); GFR AFRICAN AMERICAN 43 ML/MIN (>=60); GFR NON AFRICAN AMERICAN 38 ML/MIN (>=60); GLUCOSE, SERUM 137 MG/DL (60-99); POTASSIUM, SERUM 4.1 MMOL/L (3.5-5.3); SODIUM, SERUM 139 MMOL/L (135-148)
[2016-08-21 07:17] LABS: PHOSPHORUS, SERUM 3.5 MG/DL (2.5-4.5)
[2016-08-21 08:15] LABS: PROCALCITONIN 0.56 ng/mL (<0.5)
[2016-08-21 15:42] LABS: B. PERTUSSIS AB IGA IB CHG ND; B. PERTUSSIS AB IGM IB CHG ND
[2016-08-22 01:28] LABS: B. PERTUSSIS AB IGG IB CHG YES
[2016-08-22 06:52] LABS: BASOPHILS 0.1 %; BASOPHILS ABSOLUTE 0.01 10/3/uL (0.0-0.16); EOSINOPHILS 0 %; HEMATOCRIT 33.6 % (40.0-51.0); HEMOGLOBIN 11.1 g/dL (13.6-17.8); IMMATURE GRANULOCYTES 0.4 %; IMMATURE GRANULOCYTES ABSOLUTE 0.07 10/3/uL (0.0-0.11); LYMPHOCYTES 2.8 %; LYMPHOCYTES ABSOLUTE 0.47 10/3/uL (0.67-4.30); MEAN CORPUSCULAR HEMOGLOB 29.4 pg (26.0-34.0); MEAN CORPUSCULAR VOLUME 88.9 fL (80-100); MEAN PLATELET VOLUME 10.4 fL (9.2-13.0); MONOCYTES 2.6 %; MONOCYTES ABSOLUTE 0.44 10/3/uL (0.21-1.20); NEUTROPHILS 94.1 %; NEUTROPHILS ABSOLUTE 15.67 10/3/uL (2.02-8.40); PLATELET COUNT 196 10/3/uL (150-400); RBC DISTRIBUTION WIDTH 15.9 % (12.0-16.0); RED CELL COUNT 3.78 10/6/uL (4.7-6.1); WHITE BLOOD CELLS 16.7 10/3/uL (4.5-10.5)
[2016-08-22 07:04] LABS: MANUAL DIFF NO %
[2016-08-22 07:05] LABS: CALCIUM, SERUM 8.8 MG/DL (8.5-10.4); CHLORIDE, SERUM 98 MMOL/L (96-112); CO2 (CARBON DIOXIDE) 34 MMOL/L (24-34); CREATININE 1.99 MG/DL (0.70-1.30); GFR AFRICAN AMERICAN 37 ML/MIN (>=60); GFR NON AFRICAN AMERICAN 32 ML/MIN (>=60); GLUCOSE, SERUM 127 MG/DL (60-99); PHOSPHORUS, SERUM 4.2 MG/DL (2.5-4.5); POTASSIUM, SERUM 4.3 MMOL/L (3.5-5.3); SODIUM, SERUM 141 MMOL/L (135-148)
[2016-08-22 07:12] LABS: BUN (BLOOD UREA NITROGEN) 76 MG/DL (6-23)
== END 2016-08-22 20:23 | disposition expired | DRG 291 ==
LOC: ER 05:46 → 7NO 06:33
PROVIDERS: Emergency Medicine; Family Medicine; Internal Medicine; Internal Medicine Cardiovascular Disease; Internal Medicine Pulmonary Disease; Nurse Practitioner; Nurse Practitioner Gerontology
DX: I13.0 Hypertensive heart and chronic kidney disease with heart failure and stage 1 through stage 4 chronic kidney disease, or unspecified chronic kidney disease (principal); I50.23 Acute on chronic systolic (congestive) heart failure; J96.21 Acute and chronic respiratory failure with hypoxia; J18.9 Pneumonia, unspecified organism; N17.9 Acute kidney failure, unspecified; J44.9 Chronic obstructive pulmonary disease, unspecified; N18.9 Chronic kidney disease, unspecified; G47.33 Obstructive sleep apnea (adult) (pediatric); I25.10 Atherosclerotic heart disease of native coronary artery without angina pectoris; Z95.1 Presence of aortocoronary bypass graft; Z86.73 Personal history of transient ischemic attack (TIA), and cerebral infarction without residual deficits; E03.9 Hypothyroidism, unspecified; Z95.810 Presence of automatic (implantable) cardiac defibrillator; Z51.5 Encounter for palliative care; Z66 Do not resuscitate; I73.9 Peripheral vascular disease, unspecified; Z87.01 Personal history of pneumonia (recurrent); Z88.0 Allergy status to penicillin; Z88.2 Allergy status to sulfonamides
CPT/HCPCS: 36600; 71010; 71020; 71250; 74000; 80048; 80053; 80202; 82607; 82805; 83540; 83605; 83735; 83880; 84100; 84145; 84443; 84484; 85025; 85610; 85730; 86615; 86615-59; 86638; 86638-59; 86738; 87040; 87070; 87205; 87449; 87804; 93005; 94640; 94660; 94667; 94668; 99291; A9270-GY; C8929; J0456; J0692; J1170; J1956; J2020; J2543; J2920; J2930; J3370; P9047; Q9957